=== PATIENT | male | born 1955 | race Caucasian/White ===

== ENCOUNTER 2020-11-03 18:28 | Emergency (ER) | payer OTHER ==
[~2020-11-03] VITALS: Ht 172.7 cm; Wt 79.8 kg
[2020-11-03 19:06] LABS: URINE BILIRUBIN NEGATIVE (Negative); URINE BLOOD 3+ (Negative); URINE CLARITY CLEAR; URINE COLOR YELLOW; URINE GLUCOSE-RANDOM* NEGATIVE (Negative); URINE KETONES NEGATIVE (Negative); URINE LEUKOCYTES-REFLEX NEGATIVE (Negative); URINE NITRITE-REFLEX NEGATIVE (Negative); URINE PROTEIN (DIPSTICK) 2+ (Negative); URINE SPECIFIC GRAVITY >= 1.030 (1.005-1.035); URINE UROBILINOGEN 0.2 E.U./dl (0.2-1.0)
[2020-11-03 19:10] LABS: HEMATOCRIT 44.6 % (42.0-52.0); HEMOGLOBIN 15.9 gm/dL (14.0-18.0); MCH 31.9 pg (26.0-34.0); MCHC 35.7 g/dL (28.0-37.0); MCV 89.4 fL (80.0-100.0); PLATELET COUNT 332 thou/uL (150-400); RBC 4.99 mil/uL (4.50-6.00); RDW 32.2 % (10.5-14.5); WBC 18.5 thou/uL (4.0-11.0)
[2020-11-03 19:22] LABS: CALCIUM 9.4 mg/dL (8.5-10.1); CREATININE 1.1 mg/dL (0.7-1.3); POTASSIUM 4.3 mmol/L (3.5-5.1)
[2020-11-03 19:23] LABS: CALCIUM OXALATE 4-10 Moderate /LPF (None Seen)
[2020-11-03 19:25] LABS: SQUAMOUS 0-3 Few /LPF (0-3)
[2020-11-03 19:26] LABS: CASTS None Seen /LPF (None Seen); MUCUS 4-6 Moderate strn/LPF (None Seen); URINE RBC 3-10 Few /HPF (NONE SEEN); URINE WBC-REFLEX 0-5 Rare /HPF (0-5)
[2020-11-03 19:27] LABS: BACTERIA-REFLEX 1-9 Few /HPF (None Seen)
[2020-11-03 19:28] LABS: ALBUMIN 4.1 g/dL (3.4-5.0); TOTAL BILIRUBIN 1.3 mg/dL (0.2-1.0); TOTAL PROTEIN 7.3 g/dL (6.4-8.2)
[2020-11-03 19:28] LABS: AMORPHOUS PHOSPHATES Moderate /LPF (None Seen)
[2020-11-03] MEDS ORDERED: FLOMAX0.4 MG PO ×2 (19:44→20:08)
[2020-11-03] MEDS ORDERED: ZOFRAN ODT4 MG PO ×2 (19:44→20:08)
[2020-11-03] MEDS ORDERED: PERCOCET 5-3251 EACH PO ×2 (19:44→20:08)
[2020-11-03 20:07] LABS: ABSOLUTE NEUTROPHILS 16.1 thou/uL (1.4-8.2)
[2020-11-03 20:14] LABS: ANISOCYTOSIS 3+; OVALOCYTES 2+; POLYCHROMASIA 1+
[2020-11-03 20:49] VITALS: BP 175/104
== END 2020-11-03 21:00 | disposition home or self-care (01) ==
LOC: ER 18:28
PROVIDERS: Emergency Medicine
DX: N13.2 Hydronephrosis with renal and ureteral calculous obstruction (principal); R11.10 Vomiting, unspecified; Z90.49 Acquired absence of other specified parts of digestive tract; Z88.1 Allergy status to other antibiotic agents